=== PATIENT | male | born 1965 | race Caucasian/White ===

== ENCOUNTER 2016-10-07 09:55 | Observation (INO) | payer BC ==
[~2016-10-07 09:55] MED LIST: DEXAMETHASONE 10 MG/ML VIAL IVP ONE; ceFAZolin 2 GM/DEXTROSE 100 ML IV ONE
[2016-10-07] MEDS ORDERED: LIDOCAINE 1% 2 ML INJ ONE (10:19)
[2016-10-07] MEDS ORDERED: LIDOCAINE 1% 2 ML INJ ID PRN (10:24)
[2016-10-07] MEDS ORDERED: LR 1,000 ML IV ONE (10:24)
[2016-10-07] MEDS ORDERED: LIDO/EPI 1% **Not for Epidural 20 ML MDV ONE (11:25)
[2016-10-07] MEDS ORDERED: MIDAZOLAM 2 MG/2 ML VIAL IVP ONE (11:29)
--- NOTE | 2016-10-07 11:29 | PDANEPAE ---
ANE History of Present Illness 51 y/o for excision of submandibular lymph node possible neck dissection ANE Past Medical History - Cardiovascular History Hx Hypertension: No Hx Arrhythmias: No Hx Chest Pain: No Hx Coronary Artery / Peripheral Vascular Disease: No Hx CHF / Valvular Disease: No Hx Palpitations: No - Pulmonary History Hx COPD: No Hx Asthma/Reactive Airway Disease: Yes Hx Recent Upper Respiratory Infection: No Hx Oxygen in Use at Home: No Hx Sleep Apnea: No Sleep Apnea Screening Result - Last Documented: Negative - Neurologic History Hx Cerebrovascular Accident: No Hx Seizures: No Hx Dementia: No - Endocrine History Hx Diabetes: No - Renal History Hx Renal Disorders: No - Liver History Hx Hepatic Disorders: No - Neurological & Psychiatric Hx Hx Neurological and Psychiatric Disorders: No - Cancer History Hx Cancer: No - Congenital Disorder History Hx Congenital Disorders: No - GI History Hx Gastrointestinal Disorders: No - Surgical History Prior Surgeries: Appy 1976. Left ankle 1981. bilat bunionectomy foot. Submandibular swelling-. deviated septum repair-1999 ANE Review of Systems - Exercise capacity METS (RN): 5 METS ANE Patient History - Allergies Allergies/Adverse Reactions: No Known Allergies Allergy (Unverified 10/03/16 11:19) - Home Medications Home medications: home medication list seen and reviewed Home Medications: Albuterol [Proventil Inhaler HFA (*)] 1 - 2 puffs IH DAILY PRN 10/03/16 [Last Taken 10/07/16 09:15] Cholecalciferol Vit D3 [Vitamin D3 (*)] 1,000 units PO DAILY 10/03/16 [Last Taken 10/03/16] Ibuprofen [Motrin (*)] 200 mg PO DAILY PRN 10/03/16 [Last Taken 09/16/16] Multivitamins [Multivitamin (*)] 1 each PO DAILY 10/03/16 [Last Taken 10/04/16] [place]-3 Fatty Acids [Fish Oil 1000 mg (*)] 1,000 mg PO DAILY 10/03/16 [Last Taken 09/30/16] - NPO status NPO Since - Liquids (Date): 10/06/16 NPO Since - Liquids (Time): 04:15 NPO Since - Solids (Date): 10/06/16 NPO Since - Solids (Time): 19:30 - Anes Hx Anes Hx: no prior problems - Smoking Hx Smoking Status: Former smoker - Alcohol Use Alcohol Use: Occasionally - Family Anes Hx Family Anes Hx: none Family Hx Anesthesia Complications: none ANE Labs/Vital Signs - Vital Signs Blood Pressure: 124/95 Heart Rate: 67 Respiratory Rate: 18 O2 Sat (%): 67 Height: 6 ft 2 in Weight: 90.718 kg ANE Physical Exam - Airway Neck exam: FROM Mallampati Score: Class 2 Mouth exam: normal dental/mouth exam - Pulmonary Pulmonary: no respiratory distress - Cardiovascular Cardiovascular: regular rate and rhythym - ASA Status ASA Status: II ANE Anesthesia Plan Anesthesia Plan: general endotracheal anesthesia
--- NOTE | 2016-10-07 11:44 | PDHPUP ---
History & Physical Update H&P update statement: This history and physical update is based on an assessment of the patient which was completed after admission or registration (within 24 hours), but prior to the surgery/procedure. H&P changes: Pt with suspected SCCa on R FNA though not 100% +. PET negative for a primary site, R neck mass lit up with low suv. Discussed with Dr. Patterson and Luis who agree that excisional neck mass bx warranted to confirm path> If positive, will do DL, targeted Bx, B tonsillectomy and R SND. pt agrees.
[2016-10-07] MEDS ORDERED: PROPOFOL/EMULSION 500 MG/50 ML BOTTLE IV ONE ×2 (11:52→13:10)
[2016-10-07] MEDS ORDERED: fentaNYL 100 MCG/2 ML INJ ONE (11:52)
[2016-10-07] MEDS ORDERED: REMIFENTANIL HCL 1 MG VIAL ONE ×2 (11:52→13:10)
[2016-10-07] MEDS ORDERED: ROCURONIUM 50 MG/5 ML VIAL ONE (11:55)
[2016-10-07] MEDS ORDERED: HYDROmorphONE/DILAUDID 2 MG/ML INJ ONE (14:14)
[2016-10-07] MEDS ORDERED: ONDANSETRON 4 MG/2 ML VIAL ONE (15:18)
[2016-10-07] MEDS ORDERED: fentaNYL 100 MCG/2 ML INJ IVP PRN (15:25)
[2016-10-07] MEDS ORDERED: MEPERIDINE 25 MG/ML SYR IVP PRN (15:25)
[2016-10-07] MEDS ORDERED: ONDANSETRON 4 MG/2 ML VIAL IVP PRN ×2 (15:25→15:55)
[2016-10-07] MEDS ORDERED: HYDROmorphONE/DILAUDID 1 MG/ML SYR IVP PRN (15:25)
[2016-10-07] MEDS ORDERED: PROMETHAZINE HCL 25 MG/ML INJ IVP PRN (15:25)
[2016-10-07] MEDS ORDERED: ALBUTEROL 3 ML DEYVIAL IH PRN (15:25)
[2016-10-07] MEDS ORDERED: NALOXONE HCL 0.4 MG/ML INJ IVP PRN (15:25)
--- NOTE | 2016-10-07 15:54 | POSTOPPROG ---
Post Op Note Date of Operation: 10/07/16 Surgeon: Mami Mathew Anesthesiologist: Steve Anesthesia: GET(General Endotracheal) Pre-op Diagnosis: R neck mass, presumed SCCa Post-op Diagnosis: R tonsil SCCa with locoregional mets Procedure: DL with B tonsillectomy, R MRND level 2-4 Findings: firm area to palpation R sup tonsil, confirmed scca on frozen Inf/Abcess present in the surg proc area at time of surgery?: No Depth: Superfical (Skin SQ) EBL: Minimal Complications: none apparent Drains: Reinaldo Urena Specimen(s): B tonsils R level 2, 3, 4 LNs
--- NOTE | 2016-10-07 15:56 | POSTANESTH ---
Post Anesthetic Evaluation Cardiovascular Status: Normal, Stable Respiratory Status: Tx Decrease in SpO2 Level of Consciousness/Mental Status: Can Participate in Eval Pain Control: Adequate, Prn Tx Ordered Nausea/Vomiting Control: Adequate, Prn Tx Ordered Complications Possibly Related to Anesthesia: None Noted
[2016-10-07] MEDS ORDERED: oxyCODONE ORAL SOLUTION 10 MG/0.5 ML UDSYR PO PRN (16:01)
[2016-10-07] MEDS ORDERED: ALBUTEROL 200 PUFFS/18 GM MDI IH PRN (16:05)
[2016-10-07] MEDS ORDERED: ceFAZolin 1 GM VIAL IVP SCH (16:15)
[2016-10-07] MEDS: D5W 1/2 NS W/ 20 KCl/L 1,000 ML IV SCH (17:37)
[2016-10-07 20:31] VITALS: RESP 16
[2016-10-08] MEDS: ACETAMINOPHEN 160 MG/5 ML UDCUP PO PRN ×2 (00:53→07:22)
[2016-10-08] MEDS: D5W 1/2 NS W/ 20 KCl/L 1,000 ML IV SCH (02:27)
--- NOTE | 2016-10-08 08:50 | SOAPPROG ---
SOAP Progress Note Assessment/Plan: Assessment: POD 1 DL, B tonsillectomy, R MRND. Doing well, minimal pain. Tolerating po, ambulating well. Drain put out about 70 cc o/n so will leave it in. D/c home with keflex, pain meds. Will call for drain removal when < 30cc/24hrs. RTC1 week 10/08/16 08:47 Subjective: Doing well, no issues o/n. Was on 2 L o/n though sounds like just d/t not getting taking off, not d/t desats. off now and sats in high 90s. Objective: AFVSS RA incision c/d/i shoulder fxn good minimal R madyson weakness though intact tongue mobile and midline. no bleeding neck flat Vital Signs Temp Pulse Resp BP Pulse Ox 36.5 C 60 16 119/80 96 10/08/16 07:30 10/08/16 07:30 10/08/16 07:30 10/08/16 07:30 10/08/16 07:30 10/07/16 10/08/16 10/09/16 05:59 05:59 05:59 Intake Total 3157 Output Total 2225 Balance 932 - Pending Discharge Pending Discharge Within 24 Hours: Yes Pending Discharge Date: 10/09/16 Pending Discharge Time: 11:00 ICD10 Worksheet Patient Problems: Problems Problem Status Onset Primary tonsillar squamous cell carcinoma Acute - ICD10 Problem Qualifiers (1) Primary tonsillar squamous cell carcinoma
[2016-10-08 11:53] VITALS: BP 123/74; PULSE 69; TEMP 98.7; O2SAT 91
[2016-10-14 12:22] LABS: ACCESSION NUMBER HR17-33172; INTERPRETATION See Comments
--- NOTE | 2016-10-16 12:35 | GOP ---
[f rep st] OPERATIVE REPORT DATE OF OPERATION: 10/07/2016 SURGEON: Mami Mathew MD PUBLIC INTERVIEWER: Arnold Vo MD ANESTHESIA: General. COMPLICATIONS: None. PREOPERATIVE DIAGNOSIS: 1. 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 2. Unknown primary squamous cell carcinoma. 3. Former smoker. POSTOPERATIVE DIAGNOSIS: 1. 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 2. Unknown primary squamous cell carcinoma. 3. Former smoker. PROCEDURE PERFORMED: 1. Direct laryngoscopy. 2. Bilateral tonsillectomy. 3. Right modified radical neck dissection, levels 2 through 4. FINDINGS: Patient was found to have a very nodular area in the superior pole of the tonsil. It did not have any ulcerations or lesions of the surface, but was felt deeper down. This was taken out and sent for frozen pathology, and was confirmed as invasive squamous cell carcinoma. The rest of the direct laryngoscopy was normal. Base of tongue was normal with no abnormalities. The neck dissection specimen showed several lymph nodes that were enlarged, with the largest being the 1 that had previously been noted and biopsied, and this was about 2 cm. ESTIMATED BLOOD LOSS: Minimal. INDICATIONS: The patient is a very pleasant 51-year-old man who I saw for an enlarged lymph node that was not going down. An FNA was done, which showed metastatic squamous cell carcinoma. There was some concern secondary to the appearance of this on a CT scan, as well as a negative PET scan for any primary lesion, that we wanted to confirm the diagnosis of squamous cell carcinoma. We talked to him preoperatively about doing a direct laryngoscopy with biopsy, and if this showed a primary site, then we would proceed with a right modified radical neck dissection. He agreed and we proceeded as planned. DESCRIPTION OF PROCEDURE: The patient was first seen in the preoperative area, where informed consent was obtained. He was then brought back to the operating room, where Anesthesia sedated and intubated him, and a universal time-out was performed. Initially, the bed was turned 90 degrees, and he was prepped and draped in the normal fashion. I initially palpated the tonsils bilaterally, as well as base of tongue. I felt a nodular area on the right that was asymmetric to the left, and it was felt that this was suspicious for the primary sit. A tooth guard was placed, and then [facility] l[facility] was use to evaluate the oral cavity, as well as the oropharynx and the base of the tongue. There were no areas that were suspicious of the base of tongue. The laryngoscope was removed. It was felt that doing a tonsillectomy on the right at least would be beneficial. At this point, I used an anterior commissure laryngoscope to evaluate the hypopharynx and the larynx, of which there were no abnormalities, so this was removed. The tooth guard was removed. A shoulder roll was placed, and then a Teresa-Earl mouth gag was placed, retracted and then suspended, giving good visualization of the oropharynx. A red rubber catheter was placed through the right naris and brought out through the oral cavity, clamped, thereby suspending the palate. The right tonsil was grasped below the area of suspicion and pulled medially, and then a tonsillectomy was performed in the normal fashion with electrocautery on a [id number] setting. The lesion was noted to be nodular and was encapsulated. It did not extend outside the tonsil or deep into the musculature, or into the soft palate. So, this was removed as a whole with no extension, and this was sent out for frozen pathology. While they were looking at this pathology, I then did the left tonsillectomy and this was sent down for permanent. At this point, the bipolar cautery was used on a low setting to cauterize any small bleeding vessels in the tonsillar fossa, and once I was confident there was no active bleeding, the red rubber catheter and the Teresa-Earl mouth gag were removed from the field, and I went down to talk to Pathology about the specimen. I did look at the pathology slides with the pathologist, and he felt that this represented an invasive squamous cell carcinoma. So at this point, I discussed this with his and we agreed to proceed with a right modified radical neck dissection. So I went back to the OR. The patient had previously been prepped and draped. I initially made a right-sided hockey-stick incision, and then electrocautery was used to incise through the skin and subcutaneous tissues, as well as the platysma, and a subplatysmal flap was elevated superiorly into the angle of the mandible, and then the inferior flap was elevated 2 cm posteriorly. Superiorly I encountered some scarring where he had a previous submandibular gland excision. I took care to locate the marginal branch of the facial nerve and kept this intact. I did take care to keep the greater auricular nerve intact as well throughout the elevation. The external jugular vein was clamped, ligated , and divided for better access, and around this area, there was noted to be some lymphadenopathy that looked somewhat enlarged, and so this area was removed and sent off the field for permanent pathology as well, labeled external jugular vein nodes. At this point, the fascia over the SCM was incised , and then the SCM muscle was retracted laterally while using blunt and sharp dissection, as well as harmonic scissors to divide and retract this laterally until I got lateral to the carotid sheath. Once this was done, the large node that had previously been identified was noted to be slightly anterior to the SCM , and this was left for later on in the procedure. At this point, the spinal accessory nerve was found by using blunt dissection using the burlisher instrument. Once this was found, it was skeletonized up to the skull base and to the junction of it with the internal jugular vein. Once the internal jugular vein was found superiorly, I then found this inferiorly as well. To delineate our inferior extent, I also found the omohyoid muscle and this was divided to get complete access to level 4. Once this was done, the lymph node and fat tissue in level 2A were elevated off the underlying musculature, taking care to protect the spinal accessory nerve, as well as the internal jugular vein as our medial boundary. Level 2A was brought underneath the spinal accessory nerve to join level 2B. The cervical nerve rootlets acted as our posterior boundary, and so these were found along the length of the neck dissection specimen laterally. I then continued the dissection inferiorly, releasing the lymph node tissue and fat off the underlying musculature, taking care to keep the rootlets intact, as well as always keeping our carotid sheath in visualization. Inferiorly, we delineated our inferior boundary, divided this, then we gasped the specimen levels 2, 3, and 4 with [place], and these were elevated superiorly and medially. The dissection was continued, along with electrocautery , as well as blunt dissection, and also sharp dissection to elevate this off the underlying carotid sheath coming anteriorly, and this was completely released from the underlying carotid sheath with a 15 blade. All 3 levels were completely identified and released from their surrounding tissues. These were divided into levels 2, 3, and 4, and then sent off the field for permanent pathology. The larger node that was previously identified was somewhat outside the bounds of this and slightly anterior to where I would normally find it. He had previously had a right submandibular gland excision about 10 years ago. This was able to be noted with some scar tissue around this area. Previously, this marginal branch of the facial nerve was visualized and this was kept intact and protected. The right level 2 node that was somewhat enlarged, was somewhat scarred down to the surrounding tissues. I performed blunt dissection using harmonic scissors to divide the tissues, and this was completely released from the underlying internal jugular vein. During dissection, the hypoglossal nerve was noted and this was kept intact and uninjured. The node was completely released from other surrounding tissues and musculature until it was able to be removed and sent off the filed for permanent pathology as a level 2. Once this was done, the wound was irrigated with normal saline. A Valsalva was given by anesthesia and there was no obvious bleeding, and any small bleeding vessels were cauterized using bipolar cautery. At this point, a size 15-Maltese drain was placed exiting laterally to the inferior skin flap. This was sutured into place along the skin with #2-0 silk. A 3-0 Vicryl in an interrupted fashion was used to close the platysma and subcutaneous tissues, and then the skin was closed using a 5-0 running nylon stitch. At this point, the wound was cleaned off. Bacitracin was placed over the incision, as well as the drain site, and then was turned back over to Anesthesia, where he was awoken and extubated, and taken to PACU in stable condition. There were no complications, and he tolerated the procedure well. /[id number]/MODL MTDD
== END 2016-10-08 13:36 | disposition home or self-care (01) ==
LOC: F3E 09:55
PROVIDERS: ADMIT Otolaryngology; ATTEND Otolaryngology
PROC: 07T10ZZ Resection of Right Neck Lymphatic, Open Approach (ICD-10-PCS; principal; 2016-10-07 09:45)
PROC: 0CTPXZZ Resection of Tonsils, External Approach (ICD-10-PCS; principal; 2016-10-07 09:45)
DX: C44.42 Squamous cell carcinoma of skin of scalp and neck (principal); C44.92 Squamous cell carcinoma of skin, unspecified; Z87.891 Personal history of nicotine dependence
CPT/HCPCS: 38724; 42826; G0378; 88365-90; J0171; J0690; J1100; J1170; J2250; J2405; J2704; J3010